=== PATIENT | male | born 1965 | race Caucasian/White ===

== ENCOUNTER 2016-06-11 10:30 | Emergency (ER) | payer OTHER ==
[~2016-06-11 10:30] MED LIST: LORAZEPAM0.5 MG PO; MORPHINE SULFAT15 M2 PO; OMEPRAZOLE20 M1 PO; PERCOCET1 TA1 PO; VITAMIN C TR1000 MG PO; VITAMIN D1000 UNIT PO
--- NOTE | 2016-06-11 13:24 | DIAGNOSTIC IMAGING REPORT ---
PROCEDURE: ABDOMEN/PELVIS WITH CONTRAST CLINICAL INDICATION: ABDOMINAL PAIN TECHNIQUE: 125 ml of Isovue 300 were injected intravenously and axial images were obtained of the abdomen and pelvis with sagittal and coronal reformations. COMPARISON: 03/14/2014 FINDINGS: ABDOMEN: Mild right lung base atelectatic change. Normal sized heart. No hiatal hernia. Moderately severe hepatic hypodensity. The liver, gallbladder, adrenal glands, kidneys, pancreas and spleen are normal. The abdominal aorta is normal in its course and caliber. No atherosclerosis. There are no suspicious calcifications, retroperitoneal adenopathy or masses. Stomach, small bowel loops, and mesentery are normal. Intact anterior abdominal wall. No free fluid or inflammation. There is liquid stool throughout the colon. The descending and sigmoid colon are in spasm. No significant pericolonic inflammation. Small bowel pattern is nonspecific. PELVIS: The appendix and pelvic small bowel loops are normal. The prostate gland, seminal vesicles, urinary bladder, and pelvic vessels are normal. No adenopathy, free fluid, or pelvic mass. Intact osseous structures. IMPRESSION: 1. Findings suggestive of enterocolitis. 2. Normal appendix. 3. Chronic moderately severe hepatic hypodensity/hepatic steatosis. 4. Discussed with Dr. Hopkins in the emergency room. All CT scans at this facility use dose modulation, iterative reconstruction, and/or weight-based dosing when appropriate to reduce radiation dose to as low as reasonably achievable.
--- NOTE | 2016-06-11 14:55 | DIAGNOSTIC IMAGING REPORT ---
PROCEDURE: XR CHEST 2 VIEW INDICATION: LOW O2 SATS TECHNIQUE: Two views. COMPARISON: 05/21/2015 FINDINGS: The cardiomediastinal contour is stable, within normal limits. The central vasculature is not congested. There are mild atelectatic changes in the right posterior lower lung. This has developed since the previous study. No hazy consolidations, effusion, or pneumothorax. Chronic mild right hemidiaphragm elevation. The visualized osseous structures are intact. IMPRESSION: 1. Development of right lower lung atelectatic changes. Given clinical history, infection is less likely. 2. Findings called to the emergency room.
--- NOTE | 2016-06-11 15:08 | ED NURSING NOTES ---
Clinical Report - Nurses [facility] [address] [place] [address] 06/11/2016 10:30 [id number] Triage time 10:35. Acuity: LEVEL 3. Chief Complaint: ABDOMINAL PAIN, NAUSEA, VOMITING and DIARRHEA. 10:43 06/11/16. Alert. SEPSIS SCREEN: Sepsis Screen. Negative (no infection suspected/documented). --10:43 Shelly Orourke R.N. 10:38 06/11/16. BP: 126/82. HR: 126. RR: 17. O2 saturation: 90%. Temp: 97.8 F. Pain level now: 11/15. --10:43 Shelly Orourke R.N. Weight: 91.3 kg stated. Height/Length: 67 inches. BMI: 31.6. --10:41 Shelly Orourke R.N. Medications Morphine Sulfate Oral (Capsule Extended Release 24 Hour 10 mg) 15 mg, daily. PriLOSEC Oral 20 mg, daily. --10:39 Shelly Orourke R.N. Allergies Ceclor. Definite(hives) --10:39 Shelly Orourke R.N. History Arrived by private vehicle. Historian: patient. Accompanied by family. Primary physician (Dr Espinosa). This started last night. Last oral intake by patient was breakfast this morning 2 hours ago. Treatment SYSTEMS TEST ENGINEER: (Pediatric zofran). PAST MEDICAL HX: Immunizations: up-to-date. SOCIAL HX: Never smoker. No alcohol use or drug use. FALL RISK ASSESSMENT: Fall risk assessment completed. No fall risk identified. NUTRITIONAL RISK ASSESSMENT: The nutritional risk assessment revealed no deficiencies. FUNCTIONAL ASSESSMENT: Functional assessment: no impairments noted. LEARNING NEEDS ASSESSMENT: The learning needs assessment revealed no barriers. SKIN INTEGRITY ASSESSMENT: Skin integrity risk assessment completed. No skin integrity risk identified. --10:43 Shelly Orourke R.N. PROBLEMS: Vomiting. Gastroesophageal Reflux. Abdominal Pain. Diarrhea. Neck Injury. Gastroesophageal Reflux Disease. Immunizations. --10:40 Shelly Orourke R.N. ADDITIONAL SURGERIES: Carpal Tunnel Surgery. Shoulder Surgery. --10:40 Shelly Orourke R.N. Interventions ID band on patient. To treatment room. --10:43 Shelly Orourke R.N. PHYSICAL ASSESSMENT 10:44 06/11/16. Ambulatory to room. GENERAL / NEURO / PSYCH: Alert. Oriented X 4. Appears in pain. HEENT: Mucous membranes are pink. RESPIRATORY: Respirations not labored. CVS: Capillary refill less than 2 seconds. GI / : Abdominal tenderness in the right lower quadrant. SKIN: Skin is warm and dry. --10:44 Shelly Orourke R.N. NURSING PROGRESS NOTES 10:44 06/11/16. Two patient identifiers checked. Call light placed in reach. Side rails up x 1. Bed placed in lowest position. Patient ready for evaluation- chart flagged and notification provided. --10:44 Shelly Orourke R.N. 11:11 06/11/2016 Site #1 started via IV in the right wrist with an 20g angiocath; one attempt. Blood drawn: rainbow set. Labeled in the presence of the patient and sent to the lab. Saline lock flushed with 5 mL saline. --11:21 Shelly Orourke R.N. 11:17 06/11/2016 Zofran (Ondansetron HCl) IVP 4 mg given over 2 minute(s) via site #1. Allergies verified and confirmed 5 rights. IV patency established. IV site checked: no pain, redness, or swelling. IV flushed thoroughly pre- and post-medication administration. IVP given by RN. --11:22 Shelly Orourke R.N. 11:22 06/11/2016 Started bag #1 1000 mL IV Fluids IV NS (Saline); bolus of 999 mL over 1 hour(s) via site #1 via IV pump. Allergies verified and confirmed 5 rights. IV patency established. IV site checked: no pain, redness, or swelling. IV flushed thoroughly pre- and post-medication administration. Completed per protocol. --11:22 Shelly Orourke R.N. 11:36 06/11/2016 PROTONIX (Pantoprazole Sodium) IVP 40 mg given over 2 minute(s) via site #1. Allergies verified and confirmed 5 rights. IV patency established. IV site checked: no pain, redness, or swelling. IV flushed thoroughly pre- and post-medication administration. IVP given by RN. --11:36 Shelly Orourke R.N. 11:38 06/11/2016 Reglan (Metoclopramide HCl) IVP 10 mg given over 2 minute(s) via site #1. Allergies verified and confirmed 5 rights. IV patency established. IV site checked: no pain, redness, or swelling. IV flushed thoroughly pre- and post-medication administration. IVP given by RN. --11:38 Shelly Orourke R.N. 11:45 06/11/16. Patient and family informed about reason for wait and about plan of care. ( Patient given sponge to wet mouth. Patient is aware that he needs to provide urine as soon as possible.). --11:45 Shelly Orourke R.N. 11:51 06/11/2016 IV Fluids IV NS via IV site #1 Rate Changed: bag #1 decreased to 125 mL/hr via IV pump. IV patency established. IV site checked: no pain, redness, or swelling. IV flushed thoroughly. Confirmed 5 Rights. --11:51 Shelly Orourke R.N. 11:51 06/11/16. ( Dr Hopkins at bedside.). --11:51 Shelly Orourke R.N. EKG time: (12:09 PM). EKG was performed by a tech and shown to the ED physician. --12:11 Pascale Huston 12:33 06/11/16. ( cutter grind tool technician elana blood samples.). --12:33 Rubina Martinez R.N. 14:01 06/11/16. Patient ID band checked for patient name and birthdate: patient confirmed. Instructions provided to collect clean catch urine and patient verbalized understanding. Clean catch urine collected with return of yellow-colored clear urine; odor is normal; sample sent to lab for urinalysis and drug screen. Specimen labeled in the presence of the patient. Patient informed about reason for wait and about plan of care. --14:01 Shelly Orourke R.N. 13:56 06/11/16. BP: 120/73. HR: 118. RR: 16. O2 saturation: 91%. Temp: deferred. Pain level now: 06/15. --14:02 Shelly Orourke R.N. 14:02 06/11/16. --14:02 Shelly Orourke R.N. 15:24 06/11/2016 IV Fluids IV NS Discontinued: bag #1 completed. Total amount infused: 1000 mL. IV patency established. IV site checked: no pain, redness, or swelling. IV flushed thoroughly. --15:49 Shelly Orourke R.N. DISPOSITION / DISCHARGE 15:48 06/11/16. No learning barriers present. Discharge instructions provided and reviewed with the patient and spouse. Reviewed medication(s). Treatments reviewed. Reviewed diet. Activity restrictions reviewed. Work note given. Patient and spouse verbalized understanding. Written instructions provided in Welsh. The patient was discharged by the physician. He was discharged home and accompanied by spouse. He left the Emergency Department ambulatory and via private vehicle. Spouse driving. --15:48 Shelly Orourke R.N. 15:47 06/11/16. BP: 118/74. HR: 104. RR: 15. O2 saturation: 100%. Temp: deferred. Pain level now: 07/15. --15:48 Shelly Orourke R.N. 18:38 06/11/16. ( Unable to locate signed discharge sheet. Patient received and left with all discharge papers.). --18:38 Shelly Orourke R.N. Locked/Released at 06/11/2016 19:04 by Shelly Orourke R.N.
--- NOTE | 2016-06-11 15:08 | ED NURSING NOTES ---
Clinical Report - Nurses [facility] [address] [place] [address] 06/11/2016 10:30 [id number] Triage time 10:35. Acuity: LEVEL 3. Chief Complaint: ABDOMINAL PAIN, NAUSEA, VOMITING and DIARRHEA. 10:43 06/11/16. Alert. SEPSIS SCREEN: Sepsis Screen. Negative (no infection suspected/documented). --10:43 Shelly Orourke R.N. 10:38 06/11/16. BP: 126/82. HR: 126. RR: 17. O2 saturation: 90%. Temp: 97.8 F. Pain level now: 11/15. --10:43 Shelly Orourke R.N. Weight: 91.3 kg stated. Height/Length: 67 inches. BMI: 31.6. --10:41 Shelly Orourke R.N. Medications Morphine Sulfate Oral (Capsule Extended Release 24 Hour 10 mg) 15 mg, daily. PriLOSEC Oral 20 mg, daily. --10:39 Shelly Orourke R.N. Allergies Ceclor. Definite(hives) --10:39 Shelly Orourke R.N. History Arrived by private vehicle. Historian: patient. Accompanied by family. Primary physician (Dr Espinosa). This started last night. Last oral intake by patient was breakfast this morning 2 hours ago. Treatment DRUG ABUSE RESISTANCE EDUCATION OFFICER: (Pediatric zofran). PAST MEDICAL HX: Immunizations: up-to-date. SOCIAL HX: Never smoker. No alcohol use or drug use. FALL RISK ASSESSMENT: Fall risk assessment completed. No fall risk identified. NUTRITIONAL RISK ASSESSMENT: The nutritional risk assessment revealed no deficiencies. FUNCTIONAL ASSESSMENT: Functional assessment: no impairments noted. LEARNING NEEDS ASSESSMENT: The learning needs assessment revealed no barriers. SKIN INTEGRITY ASSESSMENT: Skin integrity risk assessment completed. No skin integrity risk identified. --10:43 Shelly Orourke R.N. PROBLEMS: Vomiting. Gastroesophageal Reflux. Abdominal Pain. Diarrhea. Neck Injury. Gastroesophageal Reflux Disease. Immunizations. --10:40 Shelly Orourke R.N. ADDITIONAL SURGERIES: Carpal Tunnel Surgery. Shoulder Surgery. --10:40 Shelly Orourke R.N. Interventions ID band on patient. To treatment room. --10:43 Shelly Orourke R.N. PHYSICAL ASSESSMENT 10:44 06/11/16. Ambulatory to room. GENERAL / NEURO / PSYCH: Alert. Oriented X 4. Appears in pain. HEENT: Mucous membranes are pink. RESPIRATORY: Respirations not labored. CVS: Capillary refill less than 2 seconds. GI / : Abdominal tenderness in the right lower quadrant. SKIN: Skin is warm and dry. --10:44 Shelly Orourke R.N. NURSING PROGRESS NOTES 10:44 06/11/16. Two patient identifiers checked. Call light placed in reach. Side rails up x 1. Bed placed in lowest position. Patient ready for evaluation- chart flagged and notification provided. --10:44 Shelly Orourke R.N. 11:11 06/11/2016 Site #1 started via IV in the right wrist with an 20g angiocath; one attempt. Blood drawn: rainbow set. Labeled in the presence of the patient and sent to the lab. Saline lock flushed with 5 mL saline. --11:21 Shelly Orourke R.N. 11:17 06/11/2016 Zofran (Ondansetron HCl) IVP 4 mg given over 2 minute(s) via site #1. Allergies verified and confirmed 5 rights. IV patency established. IV site checked: no pain, redness, or swelling. IV flushed thoroughly pre- and post-medication administration. IVP given by RN. --11:22 Shelly Orourke R.N. 11:22 06/11/2016 Started bag #1 1000 mL IV Fluids IV NS (Saline); bolus of 999 mL over 1 hour(s) via site #1 via IV pump. Allergies verified and confirmed 5 rights. IV patency established. IV site checked: no pain, redness, or swelling. IV flushed thoroughly pre- and post-medication administration. Completed per protocol. --11:22 Shelly Orourke R.N. 11:36 06/11/2016 PROTONIX (Pantoprazole Sodium) IVP 40 mg given over 2 minute(s) via site #1. Allergies verified and confirmed 5 rights. IV patency established. IV site checked: no pain, redness, or swelling. IV flushed thoroughly pre- and post-medication administration. IVP given by RN. --11:36 Shelly Orourke R.N. 11:38 06/11/2016 Reglan (Metoclopramide HCl) IVP 10 mg given over 2 minute(s) via site #1. Allergies verified and confirmed 5 rights. IV patency established. IV site checked: no pain, redness, or swelling. IV flushed thoroughly pre- and post-medication administration. IVP given by RN. --11:38 Shelly Orourke R.N. 11:45 06/11/16. Patient and family informed about reason for wait and about plan of care. ( Patient given sponge to wet mouth. Patient is aware that he needs to provide urine as soon as possible.). --11:45 Shelly Orourke R.N. 11:51 06/11/2016 IV Fluids IV NS via IV site #1 Rate Changed: bag #1 decreased to 125 mL/hr via IV pump. IV patency established. IV site checked: no pain, redness, or swelling. IV flushed thoroughly. Confirmed 5 Rights. --11:51 Shelly Orourke R.N. 11:51 06/11/16. ( Dr Hopkins at bedside.). --11:51 Shelly Orourke R.N. EKG time: (12:09 PM). EKG was performed by a tech and shown to the ED physician. --12:11 Pascale Huston 12:33 06/11/16. ( senior technical support engineer elana blood samples.). --12:33 Rubina Martinez R.N. 14:01 06/11/16. Patient ID band checked for patient name and birthdate: patient confirmed. Instructions provided to collect clean catch urine and patient verbalized understanding. Clean catch urine collected with return of yellow-colored clear urine; odor is normal; sample sent to lab for urinalysis and drug screen. Specimen labeled in the presence of the patient. Patient informed about reason for wait and about plan of care. --14:01 Shelly Orourke R.N. 13:56 06/11/16. BP: 120/73. HR: 118. RR: 16. O2 saturation: 91%. Temp: deferred. Pain level now: 06/15. --14:02 Shelly Orourke R.N. 14:02 06/11/16. --14:02 Shelly Orourke R.N. 15:24 06/11/2016 IV Fluids IV NS Discontinued: bag #1 completed. Total amount infused: 1000 mL. IV patency established. IV site checked: no pain, redness, or swelling. IV flushed thoroughly. --15:49 Shelly Orourke R.N. DISPOSITION / DISCHARGE 15:48 06/11/16. No learning barriers present. Discharge instructions provided and reviewed with the patient and spouse. Reviewed medication(s). Treatments reviewed. Reviewed diet. Activity restrictions reviewed. Work note given. Patient and spouse verbalized understanding. Written instructions provided in Nigerian. The patient was discharged by the physician. He was discharged home and accompanied by spouse. He left the Emergency Department ambulatory and via private vehicle. Spouse driving. --15:48 Shelly Orourke R.N. 15:47 06/11/16. BP: 118/74. HR: 104. RR: 15. O2 saturation: 100%. Temp: deferred. Pain level now: 07/15. --15:48 Shelly Orourke R.N. 18:38 06/11/16. ( Unable to locate signed discharge sheet. Patient received and left with all discharge papers.). --18:38 Shelly Orourke R.N. Locked/Released at 06/11/2016 19:04 by Shelly Orourke R.N.
--- NOTE | 2016-06-11 15:08 | ED ORDER SUMMARY ---
..... Patient: TC RAPP OrderSheet [facility] VisitID: [id number] [place] [address] 51y, M Registration Date/Time: 06/11/2016 ORDER SHEET Weight: 91.3 kg (stated) Allergies: Ceclor GENERAL ORDERS: CBC w Diff Urgent (10:46 06/11/2016 RMarsden R.N. per protocol) (Ack 10:48 RKaruga) (11:23 RMarsden R.N.) CMP Urgent (10:46 06/11/2016 RMarsden R.N. per protocol) (Ack 10:48 RKaruga) (11:23 RMarsden R.N.) BMP Urgent (10:46 06/11/2016 RMarsden R.N. per protocol) (Ack 10:48 Sunshineuga) (11:07 Jordi NEGRON) (Cancelled: Other11:07 oJrdi NEGRON) UA-Culture if indicated Urgent (10:46 06/11/2016 RMarsden R.N. per protocol) (Ack 10:48 Sunshineuga) (14:08 RMarsden R.N.) Pulse oximeter (10:46 06/11/2016 RMarsden R.N. per protocol) (11:32 RMarsden R.N.) Amylase Urgent (11:08 06/11/2016 Jordi NEGRON) (Ack 11:12 Nga) (11:23 RMarsden R.N.) Lipase Urgent (11:08 06/11/2016 Jordi NEGRON) (Ack 11:12 Nga) (11:23 RMarsden R.N.) Urine Drug Screen Urgent (11:08 06/11/2016 Jordi NEGRON) (Ack 11:12 Nga) (14:08 RMarsden R.N.) NPO (11:44 06/11/2016 RMarsden R.N. verbal order read back to Jordi NEGRON) (11:44 RMarsden R.N.) CPK Urgent (11:56 06/11/2016 Jordi NEGRON) (Ack 12:01 Nga) (12:33 LSullivan R.N.) Troponin-I Urgent (11:56 06/11/2016 Jordi NEGRON) (Ack 12:01 Nga) (12:33 LSullivan R.N.) D-Dimer Urgent (11:56 06/11/2016 Jordi NEGRON) (Ack 12:01 Nga) (12:33 LSullivan R.N.) BNP Urgent (11:56 06/11/2016 Jordi NEGRON) (Ack 12:01 Nga) (12:33 LSullivan R.N.) EKG - ER Stat (11:56 06/11/2016 Jordi NEGRON) (12:08 RMarsden R.N.) CT Abd/Pel w Cont (Yes) (See report) Urgent (11:59 06/11/2016 Jordi NEGRON) (Ack 12:01 Nga) (14:09 RMarsden R.N.) Blood Culture (No) (N/A) Urgent (12:00 06/11/2016 Jordi NEGRON) (Ack 12:10 Nga) (12:33 LSullivan R.N.) Lactate, Serum Urgent (12:00 06/11/2016 Jordi NEGRON) (Ack 12:10 Nga) (12:33 LSullivan R.N.) Chest 2V Urgent (14:11 06/11/2016 Jordi NEGRON) (Ack 14:18 Nga) (15:37 RMarsden R.N.) MEDICATION ORDERS: IV FLUIDS: IV Saline Lock (10:46 06/11/2016 RMarsden R.N. per protocol) (Ack 10:59 RMarsden R.N.) (11:21 RMarsden R.N.) Zofran IV 4 mg (NOW) (10:47 06/11/2016 RMarsden R.N. per protocol) (Ack 10:59 RMarsden R.N.) (11:22 RMarsden R.N.) Reglan IV 10 mg (NOW) (11:08 06/11/2016 Jordi NEGRON) (Ack 11:23 RMarsden R.N.) (11:38 RMarsden R.N.) Protonix IVP 40mg 40 mg (Mix in NS 10ml over 2min) (11:08 06/11/2016 Jordi NEGRON) (Ack 11:23 RMarsden R.N.) (11:36 RMarsden R.N.) IV NS : initial bolus 500 mL (1000 mL/hr), then 125 mL/hr for 4h (NOW); Urgent (11:06/11/2016 Jordi NEGRON) (11:22 RMarsden R.N.) ORDER SHEET NOTES: [Electronically signed by Shelly Orourke R.N. (19:06/11/2016)] [Electronically signed by Juan Hopkins MD (09:04 06/15/2016)] [Electronically locked/signed by Shelly Orourke R.N. (19:06/11/2016)]
--- NOTE | 2016-06-11 15:08 | ED CLINICAL REPORT ---
Clinical Report - Physicians/Mid Levels [facility] [address] [place] [address] 06/11/2016 10:30 Patient: TC RAPP Time Seen: 10:33. Arrived- By private vehicle. Historian- patient. HISTORY OF PRESENT ILLNESS Chief Complaint: ABDOMINAL PAIN. This started last night and is still present. It was abrupt in onset and has been constant and waxing/waning. At its maximum, severity described as 10 / 10. When seen in the E.D., severity described as 7 / 10. Modifying factors. Not worsened by anything. Not relieved by anything. It is described as stabbing and aching. No radiation. It is described as located in the right lower quadrant. The patient has had nausea and loss of appetite. He has had vomiting. The vomiting has occurred numerous times. No blood-tinged emesis or frankly bloody emesis. He has had loose stools. No bloody or watery diarrhea. No recent travel. Similar symptoms previously: Several times. REVIEW OF SYSTEMS The patient has had chills and fatigue and experienced sweats. No fever, calf pain, chest pain, cough or difficulty breathing. No pedal edema, palpitations, black stools, bloody stools or constipation. No urinary problems. The patient has had diabetic symptoms, including fatigue. No polydipsia, polyuria, polyphagia or weight loss. he says that he has been frequently told in the past that his oxygen levels are low. He denies feeling short of breath. He says that he always feels tired during the day. His says that recently he has started snoring and then will have events during the night where he stops breathing briefly. All systems otherwise negative, except as recorded above. PAST HISTORY PCP - Lisbeth. Problems: Borderline DM. Vomiting. Gastroesophageal Reflux. Abdominal Pain. Diarrhea. Neck Injury. Gastroesophageal Reflux Disease. Additional Surgeries: Carpal Tunnel Surgery. Shoulder Surgery. Medications: Morphine Sulfate Oral (Capsule Extended Release 24 Hour 10 mg) 15 mg, daily. PriLOSEC Oral 20 mg, daily. Allergies: Ceclor. Definite(hives). SOCIAL HISTORY Never smoker. No alcohol use or drug use. Residence: [place] he lives with spouse. FAMILY HISTORY Diabetes in first-degree relative (mother); heart disease in first-degree relative (father). ADDITIONAL NOTES The nursing notes have been reviewed. PHYSICAL EXAM Vital Signs: 06/11/2016 10:38 BP: 126/82. HR: 126. RR: 17. O2 saturation: 90%. Temp: 97.8 F. Pain level now: 9/10. Have been reviewed. Appearance: Alert. Eyes: Pupils equal, round and reactive to light. ENT: Pharynx normal. Neck: Neck supple. CVS: Normal heart rate and rhythm. Heart sounds normal. Respiratory: No respiratory distress. Breath sounds normal. Abdomen: Soft. Moderate tenderness in the right lower quadrant. Bowel sounds normal. No organomegaly. No mass. Obese. Back: Normal inspection. Skin: Skin warm and dry. Normal skin color. Normal skin turgor. Extremities: Extremities exhibit normal ROM. No calf tenderness. No lower extremity edema. LABS, X-RAYS, AND EKG EKG: Rate: 104. Changes present when compared to prior EKG. (on 29 May 2015 his EKG was normal) No new ischemic changes present. The study has been independently viewed by me. Abdominal CT: IMPRESSION: 1. Findings suggestive of enterocolitis. 2. Normal appendix. 3. Chronic moderately severe hepatic hypodensity/hepatic steatosis. The study was interpreted contemporaneously by me and discussed with the radiologist. Laboratory Tests: UA-Culture if indicated: (ASHLEY: 06/11/2016 13:53) ( MsgRcvd 06/11/2016 14:19) Final results Test Result Flag Units (Reference) URINE COLOR YELLOW URINE APPEARANCE CLEAR URINE GLUCOSE NEGATIVE (NEGATIVE) URINE BILIRUBIN NEGATIVE (NEGATIVE) URINE KETONE NEGATIVE (NEGATIVE) URINE SPECIFIC GRAVITY 1.010 (1.010-1.030) URINE PH 5.0 (5.0-8.0) URINE PROTEIN NEGATIVE (NEGATIVE) URINE UROBILINOGEN 0.2 EU/dL (0.2-1.0) URINE NITRITE NEGATIVE (NEGATIVE) URINE BLOOD NEGATIVE (NEGATIVE) URINE LEUK ESTERASE NEGATIVE (NEGATIVE) URINE RBC NONE SEEN rbc/hpf (0-1) URINE WBC 1-3 wbc/hpf (0-1) URINE EPITHELIAL CELLS RARE EPI/hpf (0-5) URINE BACTERIA TRACE (<1+) (NONE SEEN) URINE COMMENT CULT NOT INDICATED 1+ MUCOUSURINE CULTURES ARE SET-UP BASED ON THE FOLLOWING CRITERIA:POSITIVE NITRITEPOSITIVE LEUKOCYTE ESTERASEGREATER THAN 10 WHITE BLOOD CELLSMODERATE (2+) OR GREATER BACTERIA CBC w Diff: (ASHLEY: 06/11/2016 11:15) ( [facility] 06/11/2016 11:52) Final results Test Result Flag Units (Reference) WHITE BLOOD COUNT 12.1 H K/uL (4.5-11.5) RED BLOOD COUNT 5.05 M/uL (4.50-5.90) HEMOGLOBIN 15.5 gm/dL (13.5-17.5) HEMATOCRIT 46.2 % (41.0-53.0) MEAN CELL VOLUME 91 fL (80-100) MEAN CORPUSCULAR HGB 31 pg (26-34) MEAN CORPUSCULAR HGB CONC 34 g/dL (31-37) RED CELL DISTRIBUTION WIDTH 13.2 % (11.6-14.8) PLATELET COUNT 203 K/uL (150-400) NEUTROPHIL % 91.7 H % (50-75) LYMPH % 5.0 L % (25-40) MONO % 3.2 % (3-14) EOSINOPHIL % 0.1 % (0-4) BASOPHIL % 0 % (0-2) [id number]: (ASHLEY: 06/11/2016 11:14) ( [facility] 06/11/2016 12:27) Final results Test Result Flag Units (Reference) D-DIMER QUANTITATIVE < 0.27 L ug/mLFEU (0.27-0.52) The primary value of this quantitative assay relates toits negative predictive value (i.e. exclusion) of pulmonaryembolism/deep vein thrombosis/DIC.Elevated levels of d-dimer may also occur with:, age, cancer, inflammation, liver disease,post-op, infection, hematoma, coronary disease, peripheralarteriopathy, bleeding disorders and thrombolytic treatment.Results should be correlated with other clinical andradiological data.Testing Methodology: Latex Immunoassay Lactate, Serum: (ASHLEY: 06/11/2016 12:25) ( [facility] 06/11/2016 13:24) Final results Test Result Flag Units (Reference) LACTIC ACID 2.7 H mmol/L (0.4-2.0) BNP: (ASHLEY: 06/11/2016 11:14) ( [facility] 06/11/2016 12:22) Final results Test Result Flag Units (Reference) B-TYPE NATRIURETIC PEPTIDE 5.9 pg/ml (5-100) CPK: (ASHLEY: 06/11/2016 11:14) ( [facility] 06/11/2016 12:15) Final results Test Result Flag Units (Reference) CPK 185 U/L (24-260) TROPONIN I 0.00 ng/mL (0.00-1.5) TROPONIN REFERENCE RANGE:<0.1 NEGATIVE0.1-1.5 INDETERMINANT>1.5 POSITIVE Urine Drug Screen: (ASHLEY: 06/11/2016 13:53) ( [facility] 06/11/2016 14:38) Final results Test Result Flag Units (Reference) AMPHETAMINE/METHAMPHETAMINE NEGATIVE (NEGATIVE) BARBITURATE NEGATIVE (NEGATIVE) BENZODIAZEPINE NEGATIVE (NEGATIVE) CANNABINOID NEGATIVE (NEGATIVE) COCAINE NEGATIVE (NEGATIVE) ECSTASY NEGATIVE (NEGATIVE) METHADONE NEGATIVE (NEGATIVE) OPIATE POSITIVE H (NEGATIVE) The urine drug screen is a qualitative screening test fordrug overdose and abuse. All screen results should beconsidered as presumptive.Drugs screened for are as follows:BenzodiazepinesCocaineAmphetamines/MetamphetaminesTHC (Tetrahydrocannabinol)OpiatesBarbituratesEcstasyMethadonePositive results are unconfirmed. For confirmation, notifythe lab for the specimen to be sent to the reference lab.All confirmations must be performed by a differentmethodology.The ingestion of natural herbal and plant productscontaining Ephedra/Ephedra metabolites can produce in urineone or more substances capable of cross reacting withamphetamine/methamphetamine immunoassays. These testsprovide a preliminary result only. A more specificalternative chemical method must be used to obtain aconfirmed analytical result. CMP: (ASHLEY: 06/11/2016 11:15) ( MsgRcvd 06/11/2016 11:43) Final results Test Result Flag Units (Reference) GLUCOSE 200 H mg/dL (70-110) BUN 21 H mg/dL (7-18) CREATININE 1.2 mg/dL (0.6-1.3) Estimated GFR >60 mL/min Estimated GFR- >60 mL/min Note: Persistent reduction over 3 months in eGFR<60 mL/min/1.73 m2 defines CKD. Patients with eGFR values>=60 mL/min/1.73 m2 may also have CKD if evidence ofpersistent proteinuria. Additional information may be foundat www.kidney.org. SODIUM 143 mmol/L (136-145) POTASSIUM 3.6 mmol/L (3.5-5.1) CHLORIDE 106 mmol/L (98-107) CARBON DIOXIDE 22 mmol/L (21-32) CALCIUM 9.1 mg/dL (8.5-10.1) TOTAL PROTEIN 8.0 g/dL (6.4-8.2) ALBUMIN 4.3 g/dL (3.3-5.0) BILIRUBIN, TOTAL 0.9 mg/dL (0.0-1.0) ALKALINE PHOSPHATASE 51 U/L (46-116) AST (SGOT) 23 U/L (15-37) ALT (SGPT) 66 U/L (12-78) LIPASE 134 U/L (73-393) AMYLASE 46 U/L (25-115) . PROGRESS AND PROCEDURES Course of Care: Patient is stable. Patient/family counseled. Old medical records reviewed. Disposition: Discharged. Condition: stable. CLINICAL IMPRESSION Acute viral gastroenteritis. Obstructive sleep apnea INSTRUCTIONS No driving or operating machinery while taking medication. Sedative medication was given during your visit. Drink plenty of fluids. (Talk with Dr. Bob about scheduling a sleep study as discussed). Warnings: Further evaluation is necessary. GENERAL WARNINGS: Return or contact your physician immediately if your condition worsens or changes unexpectedly, if not improving as expected, or if other problems arise. Your Current Medications: CONTINUE TAKING THE FOLLOWING MEDICATIONS: Morphine Sulfate Oral : Capsule Extended Release 24 Hour 10 mg, 15 mg daily. PriLOSEC Oral : 20 mg daily. Prescription Medications: Zofran 4 mg: Take 1 orally every six hours as needed for nausea/vomiting. Dispense ten (10). No refills. Substitution is permissible. Ultram 50 mg: take 1-2 orally every 6 hours as needed for pain. Dispense fifteen (15). No refills. Substitution is permissible. Phenergan suppositories 25 mg: Insert 1 rectally every 4 to 6 hours as needed for nausea or vomiting. Dispense ten (10). No refills. Substitution is permissible. Follow-up: Return to the emergency department if not able to be seen by your primary care doctor. tomorrow. Follow up with your doctor Dr. Bob tomorrow. Call for an appointment. Understanding of the discharge instructions verbalized by patient. (Electronically signed by Juan Hopkins MD 06/15/2016 9:04)
--- NOTE | 2016-06-11 15:08 | ED ORDER SUMMARY ---
..... Patient: TC RAPP OrderSheet [facility] VisitID: [id number] [place] [address] 51y, M Registration Date/Time: 06/11/2016 ORDER SHEET Weight: 91.3 kg (stated) Allergies: Ceclor GENERAL ORDERS: CBC w Diff Urgent (10:46 06/11/2016 RMarsden R.N. per protocol) (Ack 10:48 RKaruga) (11:23 RMarsden R.N.) CMP Urgent (10:46 06/11/2016 RMarsden R.N. per protocol) (Ack 10:48 RKaruga) (11:23 RMarsden R.N.) BMP Urgent (10:46 06/11/2016 RMarsden R.N. per protocol) (Ack 10:48 Sunshineuga) (11:07 Jordi NEGRON) (Cancelled: Other11:07 Jordi NEGRON) UA-Culture if indicated Urgent (10:46 06/11/2016 RMarsden R.N. per protocol) (Ack 10:48 Sunshineuga) (14:08 RMarsden R.N.) Pulse oximeter (10:46 06/11/2016 RMarsden R.N. per protocol) (11:32 RMarsden R.N.) Amylase Urgent (11:08 06/11/2016 Jordi NEGRON) (Ack 11:12 Nga) (11:23 RMarsden R.N.) Lipase Urgent (11:08 06/11/2016 Jordi NEGRON) (Ack 11:12 Nga) (11:23 RMarsden R.N.) Urine Drug Screen Urgent (11:08 06/11/2016 Jordi NEGRON) (Ack 11:12 Nga) (14:08 RMarsden R.N.) NPO (11:44 06/11/2016 RMarsden R.N. verbal order read back to Jordi NEGRON) (11:44 RMarsden R.N.) CPK Urgent (11:56 06/11/2016 Jordi NEGRON) (Ack 12:01 Nga) (12:33 LSullivan R.N.) Troponin-I Urgent (11:56 06/11/2016 Jordi NEGRON) (Ack 12:01 Nga) (12:33 LSullivan R.N.) D-Dimer Urgent (11:56 06/11/2016 Jordi NEGRON) (Ack 12:01 Nga) (12:33 LSullivan R.N.) BNP Urgent (11:56 06/11/2016 Jordi NEGRON) (Ack 12:01 Nga) (12:33 LSullivan R.N.) EKG - ER Stat (11:56 06/11/2016 Jordi NEGRON) (12:08 RMarsden R.N.) CT Abd/Pel w Cont (Yes) (See report) Urgent (11:59 06/11/2016 Jordi NEGRON) (Ack 12:01 Nga) (14:09 RMarsden R.N.) Blood Culture (No) (N/A) Urgent (12:00 06/11/2016 Jordi NEGRON) (Ack 12:10 Nga) (12:33 LSullivan R.N.) Lactate, Serum Urgent (12:00 06/11/2016 Jordi NEGRON) (Ack 12:10 Nga) (12:33 LSullivan R.N.) Chest 2V Urgent (14:11 06/11/2016 Jordi NEGRON) (Ack 14:18 Nga) (15:37 RMarsden R.N.) MEDICATION ORDERS: IV FLUIDS: IV Saline Lock (10:46 06/11/2016 RMarsden R.N. per protocol) (Ack 10:59 RMarsden R.N.) (11:21 RMarsden R.N.) Zofran IV 4 mg (NOW) (10:47 06/11/2016 RMarsden R.N. per protocol) (Ack 10:59 RMarsden R.N.) (11:22 RMarsden R.N.) Reglan IV 10 mg (NOW) (11:08 06/11/2016 Jordi NEGRON) (Ack 11:23 RMarsden R.N.) (11:38 RMarsden R.N.) Protonix IVP 40mg 40 mg (Mix in NS 10ml over 2min) (11:08 06/11/2016 Jordi NEGRON) (Ack 11:23 RMarsden R.N.) (11:36 RMarsden R.N.) IV NS : initial bolus 500 mL (1000 mL/hr), then 125 mL/hr for 4h (NOW); Urgent (11:06/11/2016 Jordi NEGRON) (11:22 RMarsden R.N.) ORDER SHEET NOTES: [Electronically signed by Shelly Orourke R.N. (19:06/11/2016)] [Electronically signed by Juan Hopkins MD (09:04 06/15/2016)] [Electronically locked/signed by Shelly Orourke R.N. (19:06/11/2016)]
--- NOTE | 2016-06-15 09:05 | ED MAR SUMMARY ---
..... Medication Administration Record [facility] [address] [place] [address] Patient: TC RAPP Visit ID: [id number] 51y, M Weight: 91.3 kg Height/Length: 67 in BMI: 31.6 ALLERGIES: Ceclor Given 11:17 06/11/2016 Shelly Orourke R.N. Medication Administered: ZOFRAN [IVP] (ONDANSETRON HCL), Dose: 4 mg IVP over 2 minute(s), Site: #1 right wrist. Medication Ordered: Zofran IV 4 mg (NOW). Start 11:22 06/11/2016 Shelly Orourke R.N., Stop 15:24 06/11/2016 Shelly Orourke R.N. Medication Administered: IV NS (SALINE), Dose: IV Fluids, Bolus: 999 mL over 1 hour(s), Dispensed: 1000 mL bag, Site: #1 right wrist. Medication Ordered: IV NS : initial bolus 500 mL (1000 mL/hr), then 125 mL/hr for 4h (NOW); Urgent. Given 11:36 06/11/2016 Shelly Orourke R.N. Medication Administered: PROTONIX [IVP] (PANTOPRAZOLE SODIUM), Dose: 40 mg IVP over 2 minute(s), Site: #1 right wrist. Medication Ordered: Protonix IVP 40mg 40 mg (Mix in NS 10ml over 2min). Given 11:38 06/11/2016 Shelly Orourke R.N. Medication Administered: REGLAN [IVP] (METOCLOPRAMIDE HCL), Dose: 10 mg IVP over 2 minute(s), Site: #1 right wrist. Medication Ordered: Reglan IV 10 mg (NOW).
--- NOTE | 2016-06-15 09:05 | ED MED RECONCILIATION SUMMARY ---
Patient: TC RAPP Medication Reconciliation Report [facility] VisitID: [id number] [address] [place] [address] 51y, M Registration Date/Time: 06/11/2016 Weight: 91.3 kg Height/Length: 67 in. BMI: 31.6 ALLERGIES: Ceclor The patient's Home Medications are listed below: CONTINUE TAKING THE FOLLOWING MEDICATIONS: Morphine Sulfate Oral (10 mg) 15 mg, daily PriLOSEC Oral 20 mg, daily The source(s) of the original Home Medication information: Not obtained. The following Medications were given to the patient in the Emergency Department: Zofran [IVP] IVP 4 mg, administered: 06/11/2016 11:17:00 AM IV NS IV Fluids bolus 999 mL over 1 hour(s), administered: 06/11/2016 11:22:00 AM PROTONIX [IVP] IVP 40 mg, administered: 06/11/2016 11:36:00 AM Reglan [IVP] IVP 10 mg, administered: 06/11/2016 11:38:00 AM The following Medications were prescribed to the patient: Zofran 4 mg: Take 1 orally every six hours as needed for nausea/vomiting. Dispense ten (10). No refills. Substitution is permissible. -- Juan Hopkins MD Ultram 50 mg: take 1-2 orally every 6 hours as needed for pain. Dispense fifteen (15). No refills. Substitution is permissible. -- Juan Hopkins MD Phenergan suppositories 25 mg: Insert 1 rectally every 4 to 6 hours as needed for nausea or vomiting. Dispense ten (10). No refills. Substitution is permissible. -- Juan Hopkins MD
--- NOTE | 2016-06-15 09:05 | ED MED RECONCILIATION SUMMARY ---
Patient: TC RAPP Medication Reconciliation Report [facility] VisitID: [id number] [address] [place] [address] 51y, M Registration Date/Time: 06/11/2016 Weight: 91.3 kg Height/Length: 67 in. BMI: 31.6 ALLERGIES: Ceclor The patient's Home Medications are listed below: CONTINUE TAKING THE FOLLOWING MEDICATIONS: Morphine Sulfate Oral (10 mg) 15 mg, daily PriLOSEC Oral 20 mg, daily The source(s) of the original Home Medication information: Not obtained. The following Medications were given to the patient in the Emergency Department: Zofran [IVP] IVP 4 mg, administered: 06/11/2016 11:17:00 AM IV NS IV Fluids bolus 999 mL over 1 hour(s), administered: 06/11/2016 11:22:00 AM PROTONIX [IVP] IVP 40 mg, administered: 06/11/2016 11:36:00 AM Reglan [IVP] IVP 10 mg, administered: 06/11/2016 11:38:00 AM The following Medications were prescribed to the patient: Zofran 4 mg: Take 1 orally every six hours as needed for nausea/vomiting. Dispense ten (10). No refills. Substitution is permissible. -- Juan Hopkins MD Ultram 50 mg: take 1-2 orally every 6 hours as needed for pain. Dispense fifteen (15). No refills. Substitution is permissible. -- Juan Hopkins MD Phenergan suppositories 25 mg: Insert 1 rectally every 4 to 6 hours as needed for nausea or vomiting. Dispense ten (10). No refills. Substitution is permissible. -- Juan Hopkins MD
--- NOTE | 2016-06-15 09:05 | ED MAR SUMMARY ---
..... Medication Administration Record [facility] [address] [place] [address] Patient: TC RAPP Visit ID: [id number] 51y, M Weight: 91.3 kg Height/Length: 67 in BMI: 31.6 ALLERGIES: Ceclor Given 11:17 06/11/2016 Shelly Orourke R.N. Medication Administered: ZOFRAN [IVP] (ONDANSETRON HCL), Dose: 4 mg IVP over 2 minute(s), Site: #1 right wrist. Medication Ordered: Zofran IV 4 mg (NOW). Start 11:22 06/11/2016 Shelly Orourke R.N., Stop 15:24 06/11/2016 Shelly Orourke R.N. Medication Administered: IV NS (SALINE), Dose: IV Fluids, Bolus: 999 mL over 1 hour(s), Dispensed: 1000 mL bag, Site: #1 right wrist. Medication Ordered: IV NS : initial bolus 500 mL (1000 mL/hr), then 125 mL/hr for 4h (NOW); Urgent. Given 11:36 06/11/2016 Shelly Orourke R.N. Medication Administered: PROTONIX [IVP] (PANTOPRAZOLE SODIUM), Dose: 40 mg IVP over 2 minute(s), Site: #1 right wrist. Medication Ordered: Protonix IVP 40mg 40 mg (Mix in NS 10ml over 2min). Given 11:38 06/11/2016 Shelly Orourke R.N. Medication Administered: REGLAN [IVP] (METOCLOPRAMIDE HCL), Dose: 10 mg IVP over 2 minute(s), Site: #1 right wrist. Medication Ordered: Reglan IV 10 mg (NOW).
--- NOTE | 2016-06-15 09:05 | ED DISCHARGE INSTRUCTIONS ---
Patient: TC RAPP General Instructions [facility] VisitID: [id number] [place] [address] 51y, M Registration Date/Time: 06/11/2016 Acute viral gastroenteritis. Obstructive sleep apnea INSTRUCTIONS No driving or operating machinery while taking medication. Sedative medication was given during your visit. Drink plenty of fluids. (Talk with Dr. Bob about scheduling a sleep study as discussed). Warnings: Further evaluation is necessary. GENERAL WARNINGS: Return or contact your physician immediately if your condition worsens or changes unexpectedly, if not improving as expected, or if other problems arise. Your Current Medications: CONTINUE TAKING THE FOLLOWING MEDICATIONS: Morphine Sulfate Oral : Capsule Extended Release 24 Hour 10 mg, 15 mg daily. PriLOSEC Oral : 20 mg daily. Prescription Medications: Zofran 4 mg: Take 1 orally every six hours as needed for nausea/vomiting. Dispense ten (10). No refills. Substitution is permissible. Ultram 50 mg: take 1-2 orally every 6 hours as needed for pain. Dispense fifteen (15). No refills. Substitution is permissible. Phenergan suppositories 25 mg: Insert 1 rectally every 4 to 6 hours as needed for nausea or vomiting. Dispense ten (10). No refills. Substitution is permissible. Follow-up: Return to the emergency department if not able to be seen by your primary care doctor. tomorrow. Follow up with your doctor Dr. Bob tomorrow. Call for an appointment. Understanding of the discharge instructions verbalized by patient. ADDITIONAL INFORMATION Viral Gastroenteritis (6Yr-Adult) Gastroenteritis is another name for thestomach flu.It is most often caused by a virus that affects the stomach and intestinal tract. Symptoms include stomach cramping and fever, vomiting and/or diarrhea, and can last from 2 to 7 days. The danger from repeated vomiting or diarrhea is dehydration. This is the loss of too much water and minerals from the body. When this occurs, body fluids must be replaced. Antibiotics are not effective for this illness, but simple home treatment will be helpful. Home Care If symptoms are severe, rest at home for the next 24 hours. Avoid tobacco, caffeine, and alcohol use, which can worsen symptoms. Acetaminophen (Tylenol) or ibuprofen (Motrin, Advil) may be usedfor fever or pain unless another medication was prescribed. NOTE: If you have chronic liver or kidney disease or ever had a stomach ulcer or GI bleeding, talk with your doctor before using these medicines. Aspirin should never be used in anyone under 18 years of age who is ill with a fever. It may cause severe liver damage. If medicines for diarrhea or vomiting were prescribed, be sure they are takenonly as directed. If vomiting, drink small amounts of clear fluids (such as water, sports drinks, clear sodas) at frequent intervals to prevent dehydration. Start with 1 to 2 tablespoons every 10 minutes. Once vomiting stops, follow these guidelines: During The First 12 To 24 Hours follow the diet below: Beverages: Sport drinks like Gatorade, soft drinks without caffeine; bill toña, mineral water (plain or flavored), decaffeinated tea and coffee. Soups: Clear broth, consomm and bouillon Desserts: Plain gelatin (Jell-O), Popsicles and fruit juice bars. During The Next 24 Hours you may add the following to the above: Hot cereal, plain toast, bread, rolls, crackers Plain noodles, rice, mashed potatoes, chicken noodle or rice soup Unsweetened canned fruit (avoid pineapple), bananas Limit fat intake to less than 15 grams per day by avoiding margarine, butter, oils, mayonnaise, sauces, gravies, fried foods, peanut butter, meat, poultry, and fish. Limit fiber; avoid raw or cooked vegetables, fresh fruits (except bananas), and bran cereals. Limit caffeine and chocolate. Do not use spices or seasonings except salt. During The Next 24 Hours The patient can gradually resume a normal diet as symptoms lessen. Preventing Spread Hand washing with soap and water is the best way to prevent the spread of viruses. Caregivers should wash their hands before andafter touching the sick person. The sick person, as well as everyone in the family,should wash their hands after using the toilet and before meals. Clean the toilet after each use. People with diarrhea should not prepare food for others. If you are preparing your own foods, wash your hands before and after. Follow Up with your doctor as advised. Call your doctor if you are not improving over the next 2 to 3 days. If a stool (diarrhea) sample was taken, you may call in 2 days (or as directed) for the results. Get Prompt Medical Attention if any of the following occur: Increasing abdominal pain Continued vomiting (unable to keep liquids down) Frequent diarrhea (more than 5 times a day) Blood in vomit or stool (black or red color) Dark urine, reduced urine output, or extreme thirst Weakness, dizziness, fainting Drowsiness, confusion, stiff neck, or seizure Fever of 100.4F (38C) oral or higher, not better with fever medication New rash Sleep Apnea[Adult] Sleep Apnea (also calledObstructive Sleep Apnea) is a condition where there are long pauses between breaths during sleep. This usually occurs when the tissues and muscles in the back of the throat relax too much during sleep. This causes the air passage in your throat to narrow or block off completely. Breathing slows down or stops completely and you then wake up, take a few good breaths and fall back to sleep again. There may be 10-60 such awakenings during a night. This prevents you from getting to the deeper stages of sleep that are needed for the body to rest and recover its strength. During sleep, loud snoring, noisy breathing or gasping sounds are common. The sleep disturbance causes daytime symptoms such as difficulty getting up in the morning, need for daytime naps, irritability, poor concentration and attention. CausesOf Sleep Apnea The main risk factor for this kind of sleep apnea is excessive weight gain. Fatty tissue gathers along the sides of the throat causing the air passage to be more narrow than normal. Increasing age is another factor due to softening of the air passage. Certain neck and jaw shapes are prone to a narrow air passage (such as receding chin) Enlarged tonsils and adenoids may block the air passage when lying down Severe nasal congestion Use of alcohol or sedatives relaxes the muscles in the throat. Smoking can cause inflammation and swelling in the upper air passages and make this problem worse. Home Care Sleep with your head and neck in a straight or neutral position. If the neck falls back or forward too far this can block breathing. Limit the use of alcohol and sedatives in the evening. Follow Up with your doctor as advised. If you are overweight, talk to your doctor about a weight loss program. If you smoke, talk to your doctor about ways to help you stop. Get Prompt Medical Attention if any of the following occur: Longer pauses than usual Unable to awaken Seizure Ondansetron Oral disintegrating tablet What is this medicine? ONDANSETRON (on GUME se jocelyne) is used to treat nausea and vomiting caused by chemotherapy. It is also used to prevent or treat nausea and vomiting after surgery. How should I use this medicine? These tablets are made to dissolve in the mouth. Do not try to push the tablet through the foil backing. With dry hands, peel away the foil backing and gently remove the tablet. Place the tablet in the mouth and allow it to dissolve, then swallow. While you may take these tablets with water, it is not necessary to do so. Talk to your msw regarding the use of this medicine in children. Special care may be needed. What side effects may I notice from receiving this medicine? Side effects that you should report to your doctor or health progressive care unit registered nurse as soon as possible: allergic reactions like skin rash, itching or hives, swelling of the face, lips, or tongue breathing problems dizziness fast or irregular heartbeat feeling faint or lightheaded, falls fever and chills swelling of the hands and feet tightness in the chest Side effects that usually do not require medical attention (report to your doctor or health progressive care unit registered nurse if they continue or are bothersome): constipation or diarrhea headache What may interact with this medicine? Do not take this medicine with any of the following medications: -apomorphine -cisapride -dofetilide -dronedarone -pimozide -thioridazine -ziprasidone This medicine may also interact with the following medications: -carbamazepine -phenytoin -rifampicin -tramadol -other medicines that prolong the QT interval (cause an abnormal heart rhythm) What if I miss a dose? If you miss a dose, take it as soon as you can. If it is almost time for your next dose, take only that dose. Do not take double or extra doses. Where should I keep my medicine? Keep out of the reach of children. Store between 2 and 30 degrees C (36 and 86 degrees F). Throw away any unused medicine after the expiration date. What should I tell my health care provider before I take this medicine? They need to know if you have any of these conditions: heart disease history of irregular heartbeat liver disease low levels of magnesium or potassium in the blood an unusual or allergic reaction to ondansetron, granisetron, other medicines, foods, dyes, or preservatives or trying to get breast-feeding What should I watch for while using this medicine? Check with your doctor or health progressive care unit registered nurse as soon as you can if you have any sign of an allergic reaction. Tramadol Hydrochloride Oral tablet What is this medicine? TRAMADOL (TRA ma dole) is a pain reliever. It is used to treat moderate to severe pain in adults. How should I use this medicine? Take this medicine by mouth with a full glass of water. Follow the directions on the prescription label. If the medicine upsets your stomach, take it with food or milk. Do not take more medicine than you are told to take. Talk to your msw regarding the use of this medicine in children. Special care may be needed. What side effects may I notice from receiving this medicine? Side effects that you should report to your doctor or health progressive care unit registered nurse as soon as possible: allergic reactions like skin rash, itching or hives, swelling of the face, lips, or tongue breathing difficulties, wheezing confusion itching light headedness or fainting spells redness, blistering, peeling or loosening of the skin, including inside the mouth seizures Side effects that usually do not require medical attention (report to your doctor or health progressive care unit registered nurse if they continue or are bothersome): constipation dizziness drowsiness headache nausea, vomiting What may interact with this medicine? Do not take this medicine with any of the following medications: MAOIs like Carbex, Eldepryl, Marplan, Nardil, and Parnate This medicine may also interact with the following medications: alcohol or medicines that contain alcohol antihistamines benzodiazepines bupropion carbamazepine or oxcarbazepine clozapine cyclobenzaprine digoxin furazolidone linezolid medicines for depression, anxiety, or psychotic disturbances medicines for migraine headache like almotriptan, eletriptan, frovatriptan, naratriptan, rizatriptan, sumatriptan, zolmitriptan medicines for pain like pentazocine, buprenorphine, butorphanol, meperidine, nalbuphine, and propoxyphene medicines for sleep muscle relaxants naltrexone phenobarbital phenothiazines like perphenazine, thioridazine, chlorpromazine, mesoridazine, fluphenazine, prochlorperazine, promazine, and trifluoperazine procarbazine warfarin What if I miss a dose? If you miss a dose, take it as soon as you can. If it is almost time for your next dose, take only that dose. Do not take double or extra doses. Where should I keep my medicine? Keep out of the reach of children. Store at room temperature between 15 and 30 degrees C (59 and 86 degrees F). Keep container tightly closed. Throw away any unused medicine after the expiration date. What should I tell my health care provider before I take this medicine? They need to know if you have any of these conditions: brain tumor depression drug abuse or addiction head injury if you frequently drink alcohol containing drinks kidney disease or trouble passing urine liver disease lung disease, asthma, or breathing problems seizures or epilepsy suicidal thoughts, plans, or attempt; a previous suicide attempt by you or a family member an unusual or allergic reaction to tramadol, codeine, other medicines, foods, dyes, or preservatives or trying to get breast-feeding What should I watch for while using this medicine? Tell your doctor or health progressive care unit registered nurse if your pain does not go away, if it gets worse, or if you have new or a different type of pain. You may develop tolerance to the medicine. Tolerance means that you will need a higher dose of the medicine for pain relief. Tolerance is normal and is expected if you take this medicine for a long time. Do not suddenly stop taking your medicine because you may develop a severe reaction. Your body becomes used to the medicine. This does NOT mean you are addicted. Addiction is a behavior related to getting and using a drug for a non-medical reason. If you have pain, you have a medical reason to take pain medicine. Your doctor will tell you how much medicine to take. If your doctor wants you to stop the medicine, the dose will be slowly lowered over time to avoid any side effects. You may get drowsy or dizzy. Do not drive, use machinery, or do anything that needs mental alertness until you know how this medicine affects you. Do not stand or sit up quickly, especially if you are an older patient. This reduces the risk of dizzy or fainting spells. Alcohol can increase or decrease the effects of this medicine. Avoid alcoholic drinks. You may have constipation. Try to have a bowel movement at least every 2 to 3 days. If you do not have a bowel movement for 3 days, call your doctor or health progressive care unit registered nurse. Your mouth may get dry. Chewing sugarless gum or sucking hard candy, and drinking plenty of water may help. Contact your doctor if the problem does not go away or is severe. Promethazine Hydrochloride Rectal suppository What is this medicine? PROMETHAZINE (proe METH a zeen) is an antihistamine. It is used to treat allergic reactions and to treat or prevent nausea and vomiting from illness or motion sickness. It is also used to make you sleep before surgery, and to help treat pain or nausea after surgery. How should I use this medicine? This medicine is for rectal use only. Do not take by mouth. Wash your hands before and after use. Take off the foil wrapping. Wet the tip of the suppository with cold tap water to make it easier to use. Lie on your side with your lower leg straightened out and your upper leg bent forward toward your stomach. Lift upper buttock to expose the rectal area. Apply gentle pressure to insert the suppository completely into the rectum, pointed end first. Hold buttocks together for a few seconds. Remain lying down for about 15 minutes to avoid having the suppository come out. Do not use more often than directed. Talk to your msw regarding the use of this medicine in children. Special care may be needed. This medicine should not be given to infants and children younger than 2 years old. What side effects may I notice from receiving this medicine? Side effects that you should report to your doctor or health progressive care unit registered nurse as soon as possible: blurred vision irregular heartbeat, palpitations or chest pain muscle or facial twitches pain or difficulty passing urine seizures skin rash slowed or shallow breathing unusual bleeding or bruising yellowing of the eyes or skin Side effects that usually do not require medical attention (report to your doctor or health progressive care unit registered nurse if they continue or are bothersome): headache nightmares, agitation, nervousness, excitability, not able to sleep (these are more likely in children) stuffy nose What may interact with this medicine? Do not take this medicine with any of the following medications: medicines called MAO Inhibitors like Nardil, Parnate, Marplan, Eldepryl other phenothiazines like trimethobenzamide This medicine may also interact with the following medications: barbiturates such as phenobarbital bromocriptine certain antidepressants certain antihistamines used in allergy or cold medicines epinephrine levodopa medicines for sleep medicines for mental problems and psychotic disturbances medicines for movement abnormalities as in Parkinson's disease, or for gastrointestinal problems muscle relaxants prescription pain medicines What if I miss a dose? If you miss a dose, use it as soon as you can. If it is almost time for your next dose, use only that dose. Do not use double doses. Where should I keep my medicine? Keep out of the reach of children. Store in a refrigerator between 2 and 8 degrees C (36 and 46 degrees F). Throw away any unused medicine after the expiration date. What should I tell my health care provider before I take this medicine? They need to know if you have any of these conditions: glaucoma high blood pressure or heart disease kidney disease liver disease lung or breathing disease, like asthma prostate trouble pain or difficulty passing urine seizures an unusual or allergic reaction to promethazine or phenothiazines, other medicines, foods, dyes, or preservatives or trying to get breast-feeding What should I watch for while using this medicine? Tell your doctor or health progressive care unit registered nurse if your symptoms do not start to get better in 1 to 2 days. You may get drowsy or dizzy. Do not drive, use machinery, or do anything that needs mental alertness until you know how this medicine affects you. To reduce the risk of dizzy or fainting spells, do not stand or sit up quickly, especially if you are an older patient. Alcohol may increase dizziness and drowsiness. Avoid alcoholic drinks. Your mouth may get dry. Chewing sugarless gum or sucking hard candy, and drinking plenty of water may help. Contact your doctor if the problem does not go away or is severe. This medicine may cause dry eyes and blurred vision. If you wear contact lenses you may feel some discomfort. Lubricating drops may help. See your eye doctor if the problem does not go away or is severe. This medicine can make you more sensitive to the sun. Keep out of the sun. If you cannot avoid being in the sun, wear protective clothing and use sunscreen. Do not use sun lamps or tanning beds/booths. If you are diabetic, check your blood-sugar levels regularly. You have been given the following additional information: Gastroenteritis, Viral (6Y-Adult) Sleep Apnea, Obstructive (Adult) Ondansetron Oral disintegrating tablet Tramadol Hydrochloride Oral tablet Promethazine Hydrochloride Rectal suppository No driving or operating machinery while taking medication. Sedative medication was given during your visit. (Electronically signed by Juan Hopkins MD 06/15/2016 9:04)
== END 2016-06-11 15:48 | disposition home or self-care (01) ==
LOC: ED SRH 10:30
DX: A08.4 Viral intestinal infection, unspecified (principal); G47.33 Obstructive sleep apnea (adult) (pediatric); K21.9 Gastro-esophageal reflux disease without esophagitis; Z79.891 Long term (current) use of opiate analgesic; Z79.899 Other long term (current) drug therapy; Z88.1 Allergy status to other antibiotic agents
CPT/HCPCS: 90004; 90065; 90074; 90100; 90616; 91320; 91556; 92031; 92235; 92530; 92610; 92760; 92761; 92762; 92763; 92764; 92765; 92766; 92767; 95059